=== PATIENT | female | born 1980 | race Caucasian/White ===

== ENCOUNTER 2016-04-17 14:04 | Inpatient (IN) | payer MEDICAID, OTHER ==
[~2016-04-17] VITALS: Ht 157.5 cm; Wt 106.0 kg
[~2016-04-17 14:04] MED LIST: BUSP10TA23 PO; FLUO-191 PO; GABA-531 PO; LEVE500T53 PO; LEVO50TA4 PO; VIST50 PO
[2016-04-17 14:31] LABS: GLUCOSE,POINT OF CARE 146 MG/DL (70-110)
[2016-04-17 14:54] LABS: BASOPHILS % (AUTO) 0.3 % (0.0-2.0); EOSINOPHILS % (AUTO) 1.6 % (1.0-6.0); HEMATOCRIT 41.7 % (36-46); HEMOGLOBIN 13.7 g/dL (12.0-16.0); LYMPHOCYTES # (AUTO) 2.3 K/uL (1.0-4.8); LYMPHOCYTES % (AUTO) 28.6 % (22.0-44.0); MEAN CORPUSCULAR HEMOGLOBIN 27.4 pg (26.0-34.0); MEAN CORPUSCULAR HGB CONC 32.9 G/dL (31.0-37.0); MEAN CORPUSCULAR VOLUME 83 fL (80-100); MONOCYTES # (AUTO) 0.6 K/uL (0.1-1.0); MONOCYTES % (AUTO) 8.2 % (2.0-9.0); NEUTROPHILS # (AUTO) 4.9 K/uL (1.8-7.7); NEUTROPHILS % (AUTO) 61.3 % (40.0-70.0); PLATELET COUNT (AUTO) 247 K/uL (150-450); RED CELL DISTRIBUTION WIDTH 14.5 % (11.5-14.5); WHITE BLOOD COUNT (AUTO) 7.9 K/uL (4.5-11.0)
[2016-04-17 15:08] LABS: ANION GAP 10 mmol/L (8-16); CALCIUM, TOTAL 9.6 mg/dL (8.8-10.5); CARBON DIOXIDE 26 mmol/L (22-29); CHLORIDE 102 mmol/L (98-107); CREATININE 0.52 mg/dL (0.60-1.30); GLOMERULAR FILTR. RATE CALC > 60 mL/min (>60); POTASSIUM 3.6 mmol/L (3.5-5.1); SODIUM SERUM 138 mmol/L (136-145); UREA NITROGEN, BLOOD 17 mg/dL (7-18)
[2016-04-17 15:14] LABS: ALANINE AMINOTRANSFERASE 73 U/L (12-78); ALBUMIN 3.2 g/dL (3.4-5.0); ASPARTATE AMINOTRANSFERASE 46 U/L (15-37); BILIRUBIN,TOTAL 0.3 mg/dL (0.1-1.0); TOTAL PROTEIN, SERUM 7.2 g/dL (6.4-8.2)
[2016-04-17 15:18] LABS: SALICYLATE < 2.8 mg/dL (2.8-20.0)
[2016-04-17 15:27] LABS: ACETAMINOPHEN < 2 mcg/mL (10-30)
[2016-04-17] MEDS ORDERED: HYDR-4031 PO (18:09)
[2016-04-17 19:22] LABS: SALICYLATE < 2.8 mg/dL (2.8-20.0)
[2016-04-17] MEDS ORDERED: PROMETHAZINE HCL 50 MG/ML VIAL IM ONE (19:45)
[2016-04-17 20:01] LABS: ACETAMINOPHEN < 2 mcg/mL (10-30)
[2016-04-17 20:53] VITALS: BP 131/68
[2016-04-17] MEDS ORDERED: DEXTROSE 50%-WATER 25 GM/50 ML SYRINGE IVP PRN (21:15)
[2016-04-17] MEDS: ZOLPIDEM TARTRATE 10 MG TABLET PO PRN (22:21)
[2016-04-18] MEDS: LEVOTHYROXINE SODIUM 50 MCG TABLET PO SCH (06:10)
[2016-04-18 09:56] VITALS: BP 138/92
[2016-04-18] MEDS: LevETIRAcetam 500 MG TABLET PO SCH ×2 (10:18→16:54)
[2016-04-18] MEDS: GABAPENTIN 300 MG CAPSULE PO SCH ×3 (14:37→21:00)
[2016-04-18] MEDS: LORazepam 2 MG TABLET PO PRN (15:20)
[2016-04-18 20:10] VITALS: BP 147/87
[2016-04-19 05:26] LABS: GLUCOSE,POINT OF CARE 190 MG/DL (70-110)
[2016-04-19] MEDS: LEVOTHYROXINE SODIUM 50 MCG TABLET PO SCH (06:35)
[2016-04-19] MEDS ORDERED: FLUoxetine HCL 20 MG CAPSULE PO SCH (09:00)
[2016-04-19] MEDS: BusPIRone HCL 10 MG TABLET PO SCH ×2 (09:35→16:04)
[2016-04-19] MEDS: GABAPENTIN 300 MG CAPSULE PO SCH ×4 (09:35→20:49)
[2016-04-19] MEDS: MULTIVITAMINS WITH MINERALS, THERAPEUTIC TABLET PO SCH (09:35)
[2016-04-19] MEDS: LevETIRAcetam 500 MG TABLET PO SCH ×2 (09:35→16:04)
[2016-04-19] MEDS: LORazepam 2 MG TABLET PO PRN ×2 (10:57→16:10)
[2016-04-19 11:35] LABS: GLUCOSE,POINT OF CARE 176 MG/DL (70-110)
[2016-04-19] MEDS: INSULIN ASPART 100 UNITS/ML SQ PRN ×3 (11:52→20:57)
[2016-04-19] MEDS: HydrOXYzine PAMOATE 25 MG CAPSULE PO SCH (16:04)
[2016-04-19 16:11] LABS: GLUCOSE,POINT OF CARE 144 MG/DL (70-110)
[2016-04-19 16:39] VITALS: BP 130/93
[2016-04-19] MEDS: QUEtiapine FUMARATE 100 MG TABLET PO PRN (19:11)
[2016-04-19 20:26] LABS: GLUCOSE,POINT OF CARE 215 MG/DL (70-110)
[2016-04-19] MEDS: ZOLPIDEM TARTRATE 10 MG TABLET PO PRN (21:04)
[2016-04-20] MEDS: LORazepam 2 MG TABLET PO PRN ×2 (03:39→17:44)
[2016-04-20 04:49] VITALS: BP 140/90
[2016-04-20 05:37] LABS: GLUCOSE,POINT OF CARE 151 MG/DL (70-110)
[2016-04-20] MEDS: LEVOTHYROXINE SODIUM 50 MCG TABLET PO SCH (06:07)
[2016-04-20] MEDS: FLUoxetine HCL 20 MG CAPSULE PO SCH (08:58)
[2016-04-20] MEDS: GABAPENTIN 300 MG CAPSULE PO SCH ×4 (08:58→21:20)
[2016-04-20] MEDS: LevETIRAcetam 500 MG TABLET PO SCH ×2 (08:58→16:53)
[2016-04-20] MEDS: MULTIVITAMINS WITH MINERALS, THERAPEUTIC TABLET PO SCH (08:59)
[2016-04-20] MEDS: HydrOXYzine PAMOATE 25 MG CAPSULE PO SCH ×3 (08:59→16:53)
[2016-04-20] MEDS: BusPIRone HCL 10 MG TABLET PO SCH ×2 (08:59→16:53)
[2016-04-20 11:42] LABS: GLUCOSE,POINT OF CARE 165 MG/DL (70-110)
[2016-04-20] MEDS: INSULIN ASPART 100 UNITS/ML SQ PRN (12:11)
[2016-04-20 17:01] VITALS: BP 118/67
[2016-04-21 05:31] LABS: GLUCOSE,POINT OF CARE 130 MG/DL (70-110)
[2016-04-21] MEDS: LEVOTHYROXINE SODIUM 50 MCG TABLET PO SCH (06:22)
[2016-04-21] MEDS: LevETIRAcetam 500 MG TABLET PO SCH ×2 (08:15→16:40)
[2016-04-21] MEDS: FLUoxetine HCL 20 MG CAPSULE PO SCH (08:15)
[2016-04-21] MEDS: BusPIRone HCL 10 MG TABLET PO SCH ×2 (08:15→16:40)
[2016-04-21] MEDS: MULTIVITAMINS WITH MINERALS, THERAPEUTIC TABLET PO SCH (08:16)
[2016-04-21] MEDS: GABAPENTIN 300 MG CAPSULE PO SCH ×4 (08:16→20:55)
[2016-04-21] MEDS: HydrOXYzine PAMOATE 25 MG CAPSULE PO SCH ×3 (08:16→16:41)
[2016-04-21] MEDS: LORazepam 2 MG TABLET PO PRN ×2 (08:28→12:47)
[2016-04-21 09:31] VITALS: BP 129/89
[2016-04-21 11:36] LABS: GLUCOSE,POINT OF CARE 207 MG/DL (70-110)
[2016-04-21] MEDS: INSULIN ASPART 100 UNITS/ML SQ PRN (11:52)
[2016-04-21 17:00] VITALS: BP 114/77
[2016-04-21] MEDS: ZOLPIDEM TARTRATE 10 MG TABLET PO PRN (20:56)
[2016-04-21] MEDS: QUEtiapine FUMARATE 100 MG TABLET PO PRN (22:38)
[2016-04-22 05:36] LABS: GLUCOSE,POINT OF CARE 161 MG/DL (70-110)
[2016-04-22] MEDS: LEVOTHYROXINE SODIUM 50 MCG TABLET PO SCH (06:18)
[2016-04-22] MEDS: LevETIRAcetam 500 MG TABLET PO SCH ×2 (09:56→16:52)
[2016-04-22] MEDS: BusPIRone HCL 10 MG TABLET PO SCH ×2 (09:56→16:52)
[2016-04-22] MEDS: GABAPENTIN 300 MG CAPSULE PO SCH ×4 (09:56→22:17)
[2016-04-22] MEDS: FLUoxetine HCL 20 MG CAPSULE PO SCH (09:56)
[2016-04-22] MEDS: HydrOXYzine PAMOATE 25 MG CAPSULE PO SCH ×3 (09:56→16:52)
[2016-04-22] MEDS: MULTIVITAMINS WITH MINERALS, THERAPEUTIC TABLET PO SCH (09:56)
[2016-04-22] MEDS: LORazepam 2 MG TABLET PO PRN ×2 (10:51→16:52)
[2016-04-22 11:41] LABS: GLUCOSE,POINT OF CARE 262 MG/DL (70-110)
[2016-04-22] MEDS: INSULIN ASPART 100 UNITS/ML SQ PRN (12:20)
[2016-04-22 19:46] VITALS: BP 125/78
[2016-04-23] MEDS: ZOLPIDEM TARTRATE 10 MG TABLET PO PRN ×2 (02:31→22:13)
[2016-04-23] MEDS: LORazepam 2 MG TABLET PO PRN ×3 (05:14→17:21)
[2016-04-23 05:44] VITALS: BP 117/77
[2016-04-23 06:06] LABS: GLUCOSE,POINT OF CARE 146 MG/DL (70-110)
[2016-04-23] MEDS: LEVOTHYROXINE SODIUM 50 MCG TABLET PO SCH (06:44)
[2016-04-23 09:03] VITALS: BP 142/74
[2016-04-23] MEDS: MULTIVITAMINS WITH MINERALS, THERAPEUTIC TABLET PO SCH (10:32)
[2016-04-23] MEDS: FLUoxetine HCL 20 MG CAPSULE PO SCH (10:33)
[2016-04-23] MEDS: GABAPENTIN 300 MG CAPSULE PO SCH ×4 (10:33→21:14)
[2016-04-23] MEDS: BusPIRone HCL 10 MG TABLET PO SCH ×2 (10:33→17:22)
[2016-04-23] MEDS: HydrOXYzine PAMOATE 25 MG CAPSULE PO SCH ×3 (10:33→17:21)
[2016-04-23] MEDS: LevETIRAcetam 500 MG TABLET PO SCH ×2 (10:33→17:20)
[2016-04-23 11:50] LABS: GLUCOSE,POINT OF CARE 174 MG/DL (70-110)
[2016-04-23] MEDS: INSULIN ASPART 100 UNITS/ML SQ PRN ×3 (12:50→21:26)
[2016-04-23 16:30] VITALS: BP 116/67
[2016-04-23 17:26] LABS: GLUCOSE,POINT OF CARE 211 MG/DL (70-110)
[2016-04-23] MEDS: OLANZapine 10 MG TABLET PO SCH (21:13)
[2016-04-23 21:16] LABS: GLUCOSE,POINT OF CARE 262 MG/DL (70-110)
[2016-04-24 06:26] LABS: GLUCOSE,POINT OF CARE 158 MG/DL (70-110)
[2016-04-24] MEDS: LEVOTHYROXINE SODIUM 50 MCG TABLET PO SCH (06:36)
[2016-04-24] MEDS: INSULIN ASPART 100 UNITS/ML SQ PRN ×3 (06:37→18:02)
[2016-04-24 08:57] VITALS: BP 129/66
[2016-04-24] MEDS: LORazepam 2 MG TABLET PO PRN ×3 (10:11→20:48)
[2016-04-24] MEDS: LevETIRAcetam 500 MG TABLET PO SCH ×2 (10:11→16:23)
[2016-04-24] MEDS: FLUoxetine HCL 20 MG CAPSULE PO SCH (10:11)
[2016-04-24] MEDS: HydrOXYzine PAMOATE 25 MG CAPSULE PO SCH ×3 (10:11→16:24)
[2016-04-24] MEDS: GABAPENTIN 300 MG CAPSULE PO SCH ×4 (10:11→20:46)
[2016-04-24] MEDS: MULTIVITAMINS WITH MINERALS, THERAPEUTIC TABLET PO SCH (10:11)
[2016-04-24] MEDS: BusPIRone HCL 10 MG TABLET PO SCH ×2 (10:13→16:24)
[2016-04-24 12:12] LABS: GLUCOSE,POINT OF CARE 258 MG/DL (70-110)
[2016-04-24 16:26] LABS: GLUCOSE,POINT OF CARE 207 MG/DL (70-110)
[2016-04-24 20:07] VITALS: BP 135/70
[2016-04-24] MEDS: OLANZapine 10 MG TABLET PO SCH (20:46)
[2016-04-24 20:51] LABS: GLUCOSE,POINT OF CARE 322 MG/DL (70-110)
[2016-04-25] MEDS: LEVOTHYROXINE SODIUM 50 MCG TABLET PO SCH (06:53)
[2016-04-25] MEDS: LORazepam 2 MG TABLET PO PRN ×3 (08:07→18:55)
[2016-04-25] MEDS: LevETIRAcetam 500 MG TABLET PO SCH ×2 (08:08→16:07)
[2016-04-25] MEDS: BusPIRone HCL 10 MG TABLET PO SCH ×2 (08:09→16:08)
[2016-04-25] MEDS: FLUoxetine HCL 20 MG CAPSULE PO SCH (08:09)
[2016-04-25] MEDS: MULTIVITAMINS WITH MINERALS, THERAPEUTIC TABLET PO SCH (08:09)
[2016-04-25] MEDS: GABAPENTIN 300 MG CAPSULE PO SCH ×4 (08:09→21:19)
[2016-04-25] MEDS: QUEtiapine FUMARATE 100 MG TABLET PO PRN ×3 (08:10→19:10)
[2016-04-25] MEDS: HydrOXYzine PAMOATE 25 MG CAPSULE PO SCH ×3 (08:10→16:08)
[2016-04-25 11:56] LABS: GLUCOSE,POINT OF CARE 207 MG/DL (70-110)
[2016-04-25] MEDS: INSULIN ASPART 100 UNITS/ML SQ PRN ×3 (12:26→21:25)
[2016-04-25 13:13] VITALS: BP 132/78
[2016-04-25 16:16] LABS: GLUCOSE COMMENT 1 Received Meds; GLUCOSE,POINT OF CARE 209 MG/DL (70-110)
[2016-04-25] MEDS: OLANZapine 10 MG TABLET PO SCH (21:19)
[2016-04-25 21:31] LABS: GLUCOSE COMMENT 1 Received Meds; GLUCOSE,POINT OF CARE 207 MG/DL (70-110)
[2016-04-26] MEDS: LEVOTHYROXINE SODIUM 50 MCG TABLET PO SCH (06:51)
[2016-04-26] MEDS: MULTIVITAMINS WITH MINERALS, THERAPEUTIC TABLET PO SCH (09:24)
[2016-04-26] MEDS: LORazepam 2 MG TABLET PO PRN (09:24)
[2016-04-26] MEDS: FLUoxetine HCL 20 MG CAPSULE PO SCH (09:24)
[2016-04-26] MEDS: GABAPENTIN 300 MG CAPSULE PO SCH ×2 (09:24→13:51)
[2016-04-26] MEDS: LevETIRAcetam 500 MG TABLET PO SCH (09:25)
[2016-04-26] MEDS: BusPIRone HCL 10 MG TABLET PO SCH (09:25)
[2016-04-26] MEDS: QUEtiapine FUMARATE 100 MG TABLET PO PRN (09:26)
[2016-04-26] MEDS: HydrOXYzine PAMOATE 25 MG CAPSULE PO SCH ×2 (09:33→13:51)
[2016-04-26 11:30] LABS: GLUCOSE,POINT OF CARE 186 MG/DL (70-110)
[2016-04-26] MEDS: INSULIN ASPART 100 UNITS/ML SQ PRN (11:46)
[2016-04-26] MEDS ORDERED: OLAN10TA3 PO (12:26)
== END 2016-04-26 14:00 | disposition home or self-care (01) | DRG 753 ==
LOC: EMS 14:06 → 3EI 19:02
DX: F31.4 Bipolar disorder, current episode depressed, severe, without psychotic features (principal); E11.9 Type 2 diabetes mellitus without complications; E03.9 Hypothyroidism, unspecified; T43.592A Poisoning by other antipsychotics and neuroleptics, intentional self-harm, initial encounter; T43.222A Poisoning by selective serotonin reuptake inhibitors, intentional self-harm, initial encounter; F20.9 Schizophrenia, unspecified; G40.909 Epilepsy, unspecified, not intractable, without status epilepticus; Y92.89 Other specified places as the place of occurrence of the external cause; X83.8XXA Intentional self-harm by other specified means, initial encounter; Y93.89 Activity, other specified; Y99.8 Other external cause status; Z88.8 Allergy status to other drugs, medicaments and biological substances; Z88.0 Allergy status to penicillin; Z79.899 Other long term (current) drug therapy; Z90.49 Acquired absence of other specified parts of digestive tract; Z98.890 Other specified postprocedural states; Z72.89 Other problems related to lifestyle
CPT/HCPCS: 82962; 99285; G0480; G0481; J2550

== ENCOUNTER 2016-07-18 19:02 | Inpatient (IN) | payer MEDICAID ==
[~2016-07-18] VITALS: Ht 157.5 cm; Wt 103.6 kg
[~2016-07-18 19:02] MED LIST changes: +HYDR-4031 PO; +OLAN10TA3 PO; -VIST50 PO
[2016-07-18 21:12] VITALS: BP 128/84
[2016-07-18] MEDS: LORazepam 2 MG TABLET PO PRN (22:43)
[2016-07-18] MEDS: OLANZapine 5 MG RAPDIS TABLET PO PRN (22:43)
[2016-07-18] MEDS ORDERED: PERMETHRIN 1% 60 ML LOTION TP ONE (23:30)
[2016-07-19] MEDS: ZOLPIDEM TARTRATE 10 MG TABLET PO PRN ×2 (00:08→22:28)
[2016-07-19] MEDS ORDERED: GLUCAGON,HUMAN RECOMBINANT 1 MG VIAL IM PRN (06:30)
[2016-07-19] MEDS: LEVOTHYROXINE SODIUM 50 MCG TABLET PO SCH (07:03)
[2016-07-19 07:38] LABS: GLUCOSE,POINT OF CARE 177 MG/DL (70-110)
[2016-07-19 07:38] LABS: GLUCOSE COMMENT 1 Received Meds; GLUCOSE,POINT OF CARE 184 MG/DL (70-110)
[2016-07-19] MEDS ORDERED: LOPERAMIDE HCL 2 MG CAPSULE PO PRN (08:30)
[2016-07-19] MEDS ORDERED: ALBUTEROL SULFATE HFA 90 MCG/PUFF 8 GM INHALER IH PRN (08:30)
[2016-07-19] MEDS ORDERED: IBUPROFEN 600 MG TABLET PO PRN (08:30)
[2016-07-19] MEDS ORDERED: ACETAMINOPHEN 325 MG TABLET PO PRN (08:30)
[2016-07-19] MEDS ORDERED: MAG HYDROX/AL HYDROX/SIMETH ES 30 ML SUSPENSION UDCUP PO PRN (08:30)
[2016-07-19] MEDS ORDERED: MAGNESIUM HYDROXIDE SUSPENSION 30 ML UDCUP PO PRN (08:30)
[2016-07-19] MEDS ORDERED: CloNIDine HCL 0.1 MG TABLET PO PRN (08:30)
[2016-07-19] MEDS ORDERED: PETROLATUM,WHITE 71 GM JELLY TP PRN (08:30)
[2016-07-19] MEDS ORDERED: BACITRACIN 28.4 GM OINTMENT TP PRN (08:30)
[2016-07-19] MEDS ORDERED: ONDANSETRON HCL 4 MG TABLET PO PRN (08:30)
[2016-07-19] MEDS ORDERED: BENZOCAINE/MENTHOL LOZENGE MM PRN (08:30)
[2016-07-19] MEDS: LevETIRAcetam 500 MG TABLET PO SCH ×2 (09:42→16:58)
[2016-07-19] MEDS: NICOTINE 21 MG/24 HOUR PATCH TD SCH (09:42)
[2016-07-19] MEDS: HydrOXYzine PAMOATE 25 MG CAPSULE PO SCH ×3 (10:39→16:58)
[2016-07-19] MEDS: FLUoxetine HCL 20 MG CAPSULE PO SCH (10:39)
[2016-07-19] MEDS: BusPIRone HCL 10 MG TABLET PO SCH ×2 (10:39→16:58)
[2016-07-19 16:26] VITALS: BP 111/79
[2016-07-19] MEDS: LORazepam 2 MG TABLET PO PRN (16:58)
[2016-07-19 19:39] LABS: GLUCOSE,POINT OF CARE 152 MG/DL (70-110)
[2016-07-19 19:39] LABS: GLUCOSE,POINT OF CARE 110 MG/DL (70-110)
[2016-07-19] MEDS: GABAPENTIN 300 MG CAPSULE PO SCH (21:21)
[2016-07-19] MEDS: OLANZapine 10 MG TABLET PO SCH (21:21)
[2016-07-20] MEDS: LORazepam 2 MG TABLET PO PRN ×3 (06:17→16:47)
[2016-07-20] MEDS: LEVOTHYROXINE SODIUM 50 MCG TABLET PO SCH (06:17)
[2016-07-20 07:04] LABS: GLUCOSE,POINT OF CARE 131 MG/DL (70-110)
[2016-07-20] MEDS: LevETIRAcetam 500 MG TABLET PO SCH ×2 (09:43→16:21)
[2016-07-20] MEDS: FLUoxetine HCL 20 MG CAPSULE PO SCH (09:43)
[2016-07-20] MEDS: BusPIRone HCL 10 MG TABLET PO SCH ×2 (09:43→16:21)
[2016-07-20] MEDS: HydrOXYzine PAMOATE 25 MG CAPSULE PO SCH ×3 (09:43→16:21)
[2016-07-20] MEDS: NICOTINE 21 MG/24 HOUR PATCH TD SCH (09:44)
[2016-07-20] MEDS: INSULIN ASPART 100 UNITS/ML SQ PRN ×2 (11:36→17:04)
[2016-07-20 13:53] LABS: GLUCOSE,POINT OF CARE 166 MG/DL (70-110)
[2016-07-20 16:35] VITALS: BP 113/64
[2016-07-20 16:52] LABS: GLUCOSE,POINT OF CARE 257 MG/DL (70-110)
[2016-07-20] MEDS: OLANZapine 5 MG RAPDIS TABLET PO PRN (17:34)
[2016-07-20] MEDS: GABAPENTIN 300 MG CAPSULE PO SCH (20:17)
[2016-07-20] MEDS: OLANZapine 10 MG TABLET PO SCH (20:18)
[2016-07-20 20:37] LABS: GLUCOSE,POINT OF CARE 218 MG/DL (70-110)
[2016-07-20] MEDS: ZOLPIDEM TARTRATE 10 MG TABLET PO PRN (20:49)
[2016-07-21] MEDS: LORazepam 2 MG TABLET PO PRN ×3 (06:20→16:12)
[2016-07-21] MEDS: INSULIN ASPART 100 UNITS/ML SQ PRN (06:20)
[2016-07-21] MEDS: LEVOTHYROXINE SODIUM 50 MCG TABLET PO SCH (06:20)
[2016-07-21 06:22] LABS: GLUCOSE,POINT OF CARE 158 MG/DL (70-110)
[2016-07-21 06:35] VITALS: BP 105/60
[2016-07-21] MEDS ORDERED: PERMETHRIN 1% 60 ML LOTION TP ONE (06:45)
[2016-07-21] MEDS: NICOTINE 21 MG/24 HOUR PATCH TD SCH (09:37)
[2016-07-21] MEDS: BusPIRone HCL 10 MG TABLET PO SCH ×2 (09:38→16:12)
[2016-07-21] MEDS: HydrOXYzine PAMOATE 25 MG CAPSULE PO SCH ×3 (09:38→16:12)
[2016-07-21] MEDS: FLUoxetine HCL 20 MG CAPSULE PO SCH (09:38)
[2016-07-21] MEDS: OLANZapine 5 MG RAPDIS TABLET PO PRN (09:38)
[2016-07-21] MEDS: LevETIRAcetam 500 MG TABLET PO SCH ×2 (09:38→16:12)
[2016-07-21 11:21] LABS: GLUCOSE,POINT OF CARE 183 MG/DL (70-110)
[2016-07-21 16:46] LABS: GLUCOSE,POINT OF CARE 266 MG/DL (70-110)
[2016-07-21] MEDS: OLANZapine 10 MG TABLET PO SCH (21:24)
[2016-07-21] MEDS: GABAPENTIN 300 MG CAPSULE PO SCH (21:24)
[2016-07-21] MEDS: ZOLPIDEM TARTRATE 10 MG TABLET PO PRN (21:24)
[2016-07-21 21:32] LABS: GLUCOSE,POINT OF CARE 226 MG/DL (70-110)
[2016-07-22] MEDS: LORazepam 2 MG TABLET PO PRN (03:14)
[2016-07-22] MEDS: LEVOTHYROXINE SODIUM 50 MCG TABLET PO SCH (06:54)
[2016-07-22] MEDS ORDERED: INSULIN NPH,HUMAN ISOPHANE 100 UNITS/ML SQ SCH ×2 (07:00→21:00)
[2016-07-22] MEDS ORDERED: SUMAtriptan SUCCINATE 25 MG TABLET PO PRN (07:00)
[2016-07-22 08:21] VITALS: BP 104/60
[2016-07-22] MEDS: LevETIRAcetam 500 MG TABLET PO SCH (08:58)
[2016-07-22] MEDS: FLUoxetine HCL 20 MG CAPSULE PO SCH (08:58)
[2016-07-22] MEDS: BusPIRone HCL 10 MG TABLET PO SCH (08:58)
[2016-07-22] MEDS: HydrOXYzine PAMOATE 25 MG CAPSULE PO SCH ×2 (08:58→12:53)
[2016-07-22] MEDS: NICOTINE 21 MG/24 HOUR PATCH TD SCH (08:58)
[2016-07-22] MEDS: INSULIN ASPART 100 UNITS/ML SQ PRN (11:41)
[2016-07-22 12:33] LABS: GLUCOSE,POINT OF CARE 249 MG/DL (70-110)
[2016-07-26] MEDS ORDERED: PERMETHRIN 1% 60 ML LOTION TP ONE (08:00)
== END 2016-07-22 15:17 | disposition home or self-care (01) | DRG 753 ==
LOC: B2S 22:05 → EDSTATUS 22:09 → B3A 23:08
PROVIDERS: ADMIT Psychiatry & Neurology Psychiatry; ATTEND Psychiatry & Neurology Psychiatry
DX: F31.9 Bipolar disorder, unspecified (principal); E11.65 Type 2 diabetes mellitus with hyperglycemia; I10 Essential (primary) hypertension; Z68.41 Body mass index [BMI] 40.0-44.9, adult; F15.90 Other stimulant use, unspecified, uncomplicated; B85.0 Pediculosis due to Pediculus humanus capitis; E66.01 Morbid (severe) obesity due to excess calories; G40.909 Epilepsy, unspecified, not intractable, without status epilepticus; J45.909 Unspecified asthma, uncomplicated; E03.9 Hypothyroidism, unspecified; G47.00 Insomnia, unspecified; Z53.29 Procedure and treatment not carried out because of patient's decision for other reasons; F22 Delusional disorders; Z88.8 Allergy status to other drugs, medicaments and biological substances; Z88.0 Allergy status to penicillin; Z90.49 Acquired absence of other specified parts of digestive tract; Z79.899 Other long term (current) drug therapy
CPT/HCPCS: 82962; 87081; J1815

== ENCOUNTER 2016-08-01 13:54 | Inpatient (IN) | payer MEDICAID ==
[~2016-08-01] VITALS: Ht 157.5 cm; Wt 105.9 kg
[2016-08-01] MEDS ORDERED: PNEUMOCOCCAL VACCINE POLYVALENT 0.5 ML VIAL [PPSV23] IM ONE (21:30)
[2016-08-01] MEDS: LORazepam 2 MG TABLET PO PRN (21:39)
[2016-08-01 21:48] VITALS: BP 125/92
[2016-08-01 22:17] LABS: GLUCOSE,POINT OF CARE 219 MG/DL (70-110)
[2016-08-02] MEDS: LORazepam 2 MG TABLET PO PRN ×3 (06:58→16:13)
[2016-08-02] MEDS ORDERED: IBUPROFEN 600 MG TABLET PO PRN (08:15)
[2016-08-02] MEDS ORDERED: BENZOCAINE/MENTHOL LOZENGE MM PRN (08:15)
[2016-08-02] MEDS ORDERED: CloNIDine HCL 0.1 MG TABLET PO PRN (08:15)
[2016-08-02] MEDS ORDERED: MAGNESIUM HYDROXIDE SUSPENSION 30 ML UDCUP PO PRN (08:15)
[2016-08-02] MEDS ORDERED: ONDANSETRON HCL 4 MG TABLET PO PRN (08:15)
[2016-08-02] MEDS ORDERED: GLUCAGON,HUMAN RECOMBINANT 1 MG VIAL IM PRN (08:15)
[2016-08-02] MEDS ORDERED: ALBUTEROL SULFATE HFA 90 MCG/PUFF 8 GM INHALER IH PRN (08:15)
[2016-08-02] MEDS ORDERED: ACETAMINOPHEN 325 MG TABLET PO PRN (08:15)
[2016-08-02] MEDS ORDERED: PETROLATUM,WHITE 71 GM JELLY TP PRN (08:15)
[2016-08-02] MEDS ORDERED: MAG HYDROX/AL HYDROX/SIMETH ES 30 ML SUSPENSION UDCUP PO PRN (08:15)
[2016-08-02] MEDS ORDERED: LOPERAMIDE HCL 2 MG CAPSULE PO PRN (08:15)
[2016-08-02] MEDS ORDERED: BACITRACIN 28.4 GM OINTMENT TP PRN (08:15)
[2016-08-02 08:29] VITALS: BP 118/73
[2016-08-02] MEDS: BusPIRone HCL 10 MG TABLET PO SCH ×2 (09:10→16:12)
[2016-08-02] MEDS: LevETIRAcetam 500 MG TABLET PO SCH ×2 (09:10→16:12)
[2016-08-02] MEDS: HydrOXYzine PAMOATE 25 MG CAPSULE PO SCH ×3 (09:10→16:13)
[2016-08-02] MEDS: FLUoxetine HCL 20 MG CAPSULE PO SCH (09:10)
[2016-08-02] MEDS: INSULIN ASPART 100 UNITS/ML SQ PRN ×3 (11:52→22:04)
[2016-08-02 12:22] LABS: GLUCOSE,POINT OF CARE 189 MG/DL (70-110)
[2016-08-02] MEDS ORDERED: PERMETHRIN 1% 60 ML LOTION TP ONE (12:45)
[2016-08-02] MEDS: FISH OIL/OMEGA-3 FATTY ACIDS 500 MG CAPSULE PO SCH (13:33)
[2016-08-02 16:32] LABS: GLUCOSE,POINT OF CARE 258 MG/DL (70-110)
[2016-08-02] MEDS: INSULIN DETEMIR 100 UNITS/ML SQ SCH (21:59)
[2016-08-02] MEDS: GABAPENTIN 300 MG CAPSULE PO SCH (21:59)
[2016-08-02] MEDS: OLANZapine 10 MG TABLET PO SCH (21:59)
[2016-08-02] MEDS: ZOLPIDEM TARTRATE 10 MG TABLET PO PRN (22:05)
[2016-08-02 22:12] LABS: GLUCOSE,POINT OF CARE 209 MG/DL (70-110)
[2016-08-03] MEDS: LEVOTHYROXINE SODIUM 50 MCG TABLET PO SCH (06:52)
[2016-08-03 07:02] VITALS: BP 128/85
[2016-08-03 07:02] LABS: GLUCOSE,POINT OF CARE 148 MG/DL (70-110)
[2016-08-03] MEDS: INSULIN ASPART 100 UNITS/ML SQ PRN ×4 (07:04→20:39)
[2016-08-03] MEDS: LORazepam 2 MG TABLET PO PRN ×4 (07:05→22:06)
[2016-08-03] MEDS: HydrOXYzine PAMOATE 25 MG CAPSULE PO SCH ×3 (09:43→16:48)
[2016-08-03] MEDS: FLUoxetine HCL 20 MG CAPSULE PO SCH (09:43)
[2016-08-03] MEDS: LevETIRAcetam 500 MG TABLET PO SCH ×2 (09:43→16:48)
[2016-08-03] MEDS: BusPIRone HCL 10 MG TABLET PO SCH ×2 (09:43→16:48)
[2016-08-03] MEDS: FISH OIL/OMEGA-3 FATTY ACIDS 500 MG CAPSULE PO SCH (09:44)
[2016-08-03 11:27] LABS: GLUCOSE COMMENT 1 Received Meds; GLUCOSE,POINT OF CARE 209 MG/DL (70-110)
[2016-08-03] MEDS ORDERED: IVERMECTIN 3 MG TABLET PO ONE (15:30)
[2016-08-03 16:52] LABS: GLUCOSE,POINT OF CARE 255 MG/DL (70-110)
[2016-08-03] MEDS: GABAPENTIN 300 MG CAPSULE PO SCH (20:03)
[2016-08-03 20:17] LABS: GLUCOSE,POINT OF CARE 299 MG/DL (70-110)
[2016-08-03] MEDS: INSULIN DETEMIR 100 UNITS/ML SQ SCH (20:38)
[2016-08-03] MEDS: ZOLPIDEM TARTRATE 10 MG TABLET PO PRN (20:59)
[2016-08-03] MEDS: OLANZapine 10 MG TABLET PO SCH (21:23)
[2016-08-04 06:41] LABS: GLUCOSE,POINT OF CARE 156 MG/DL (70-110)
[2016-08-04] MEDS: LEVOTHYROXINE SODIUM 50 MCG TABLET PO SCH (06:57)
[2016-08-04] MEDS: INSULIN ASPART 100 UNITS/ML SQ PRN (07:03)
[2016-08-04] MEDS: BusPIRone HCL 10 MG TABLET PO SCH (08:06)
[2016-08-04] MEDS: LevETIRAcetam 500 MG TABLET PO SCH (08:06)
[2016-08-04] MEDS: HydrOXYzine PAMOATE 25 MG CAPSULE PO SCH (08:06)
[2016-08-04] MEDS: FISH OIL/OMEGA-3 FATTY ACIDS 500 MG CAPSULE PO SCH (08:06)
[2016-08-04] MEDS: LORazepam 2 MG TABLET PO PRN (08:06)
[2016-08-04] MEDS: FLUoxetine HCL 20 MG CAPSULE PO SCH (08:06)
[2016-08-04 09:01] LABS: BASOPHILS # (AUTO) 0.04 K/uL (0.00-0.20); BASOPHILS % (AUTO) 0.5 % (0.0-2.0); EOSINOPHILS # (AUTO) 0.17 K/uL (0.00-0.70); EOSINOPHILS % (AUTO) 1.95 % (1.0-6.0); HEMATOCRIT 40.7 % (36-46); HEMOGLOBIN 13.4 g/dL (12.0-16.0); LYMPHOCYTES % (AUTO) 33.9 % (22.0-44.0); MEAN CORPUSCULAR HEMOGLOBIN 27.7 pg (26.0-34.0); MEAN CORPUSCULAR VOLUME 84 fL (80-100); MONOCYTES # (AUTO) 0.7 K/uL (0.1-1.0); MONOCYTES % (AUTO) 8.3 % (2.0-9.0); NEUTROPHILS # (AUTO) 4.8 K/uL (1.8-7.7); NEUTROPHILS % (AUTO) 55.4 % (40.0-70.0); PLATELET COUNT (AUTO) 233 K/uL (150-450); RED BLOOD CELL COUNT(AUTO) 4.84 MIL/uL (4.00-5.20); RED CELL DISTRIBUTION WIDTH 13.1 % (11.5-14.5); WHITE BLOOD COUNT (AUTO) 8.7 K/uL (4.5-11.0)
[2016-08-04 09:38] LABS: ALANINE AMINOTRANSFERASE 32 U/L (12-78); ANION GAP 10 mmol/L (8-16); ASPARTATE AMINOTRANSFERASE 15 U/L (15-37); BILIRUBIN,TOTAL 0.3 mg/dL (0.1-1.0); CALCIUM, TOTAL 8.9 mg/dL (8.8-10.5); CARBON DIOXIDE 25 mmol/L (22-29); CHLORIDE 105 mmol/L (98-107); CHOL/HDL RATIO 3.9 (3.9-5.7); CREATININE 0.64 mg/dL (0.60-1.30); GLOMERULAR FILTR. RATE CALC > 60 mL/min (>60); POTASSIUM 3.8 mmol/L (3.5-5.1); SODIUM SERUM 140 mmol/L (136-145); THYROID STIMULATING HORMONE 2.56 uIU/mL (0.36-3.74); UREA NITROGEN, BLOOD 15 mg/dL (7-18)
[2016-08-04 10:08] LABS: HEMOGLOBIN A1C 8.2 % (4.5-6.2)
== END 2016-08-04 10:15 | disposition home or self-care (01) | DRG 750 ==
LOC: B3A 20:53
PROVIDERS: ADMIT Psychiatry & Neurology Psychiatry; ATTEND Psychiatry & Neurology Psychiatry
DX: F25.9 Schizoaffective disorder, unspecified (principal); E11.40 Type 2 diabetes mellitus with diabetic neuropathy, unspecified; E11.65 Type 2 diabetes mellitus with hyperglycemia; F15.10 Other stimulant abuse, uncomplicated; B85.2 Pediculosis, unspecified; I10 Essential (primary) hypertension; E66.01 Morbid (severe) obesity due to excess calories; E03.9 Hypothyroidism, unspecified; G40.909 Epilepsy, unspecified, not intractable, without status epilepticus; G47.00 Insomnia, unspecified; J45.909 Unspecified asthma, uncomplicated; Z59.0 Homelessness; Z90.49 Acquired absence of other specified parts of digestive tract; Z88.8 Allergy status to other drugs, medicaments and biological substances; Z88.0 Allergy status to penicillin; Z79.899 Other long term (current) drug therapy; Z68.41 Body mass index [BMI] 40.0-44.9, adult; Z72.89 Other problems related to lifestyle
CPT/HCPCS: 82962; 83036; 84439; 84443; 87081; 90471

== ENCOUNTER 2016-10-11 13:52 | Inpatient (IN) | payer MEDICAID ==
[~2016-10-11] VITALS: Ht 157.5 cm; Wt 99.6 kg
[2016-10-11] MEDS ORDERED: TOPI100 PO (18:45)
[2016-10-11] MEDS: LORazepam 2 MG TABLET PO PRN (18:53)
[2016-10-11 19:00] VITALS: BP 118/72
[2016-10-11] MEDS ORDERED: PNEUMOCOCCAL VACCINE POLYVALENT 0.5 ML VIAL [PPSV23] IM ONE (19:15)
[2016-10-11 19:51] LABS: GLUCOSE,POINT OF CARE 202 MG/DL (70-110)
[2016-10-11] MEDS ORDERED: GLUCAGON,HUMAN RECOMBINANT 1 MG VIAL IM PRN (20:30)
[2016-10-11 20:37] LABS: GLUCOSE,POINT OF CARE 205 MG/DL (70-110)
[2016-10-11] MEDS: INSULIN ASPART 100 UNITS/ML SQ PRN (20:40)
[2016-10-11] MEDS: ZOLPIDEM TARTRATE 10 MG TABLET PO PRN (21:41)
[2016-10-12 04:17] VITALS: BP 127/86
[2016-10-12] MEDS: LORazepam 2 MG TABLET PO PRN ×4 (04:19→20:41)
[2016-10-12 06:07] LABS: GLUCOSE,POINT OF CARE 197 MG/DL (70-110)
[2016-10-12] MEDS: INSULIN ASPART 100 UNITS/ML SQ PRN ×4 (06:16→20:43)
[2016-10-12] MEDS: LEVOTHYROXINE SODIUM 50 MCG TABLET PO SCH (06:36)
[2016-10-12] MEDS: LevETIRAcetam 500 MG TABLET PO SCH ×2 (08:34→17:13)
[2016-10-12 08:36] LABS: BASOPHILS # (AUTO) 0.03 K/uL (0.00-0.20); BASOPHILS % (AUTO) 0.3 % (0.0-2.0); EOSINOPHILS # (AUTO) 0.26 K/uL (0.00-0.70); EOSINOPHILS % (AUTO) 2.66 % (1.0-6.0); HEMATOCRIT 43.6 % (36-46); HEMOGLOBIN 14.2 g/dL (12.0-16.0); LYMPHOCYTES # (AUTO) 3.1 K/uL (1.0-4.8); LYMPHOCYTES % (AUTO) 31.5 % (22.0-44.0); MEAN CORPUSCULAR HGB CONC 32.6 G/dL (31.0-37.0); MEAN CORPUSCULAR VOLUME 86 fL (80-100); MONOCYTES # (AUTO) 0.8 K/uL (0.1-1.0); MONOCYTES % (AUTO) 8.4 % (2.0-9.0); NEUTROPHILS # (AUTO) 5.7 K/uL (1.8-7.7); NEUTROPHILS % (AUTO) 57.1 % (40.0-70.0); PLATELET COUNT (AUTO) 109 K/uL (150-450); RED BLOOD CELL COUNT(AUTO) 5.07 MIL/uL (4.00-5.20); RED CELL DISTRIBUTION WIDTH 14.1 % (11.5-14.5); WHITE BLOOD COUNT (AUTO) 11.1 K/uL (4.5-11.0)
[2016-10-12] MEDS: NICOTINE 14 MG/24 HOUR PATCH TD SCH (08:36)
[2016-10-12] MEDS: BACITRACIN 28.4 GM OINTMENT TP SCH ×2 (08:39→17:13)
[2016-10-12 08:51] LABS: HEMOGLOBIN A1C 8.4 % (4.5-6.2)
[2016-10-12] MEDS ORDERED: FLUoxetine HCL 20 MG CAPSULE PO SCH (09:00)
[2016-10-12] MEDS ORDERED: PERMETHRIN 1% 60 ML LOTION TP ONE (09:00)
[2016-10-12 09:13] LABS: ALANINE AMINOTRANSFERASE 49 U/L (12-78); ALBUMIN 3.2 g/dL (3.4-5.0); ANION GAP 8 mmol/L (8-16); ASPARTATE AMINOTRANSFERASE 21 U/L (15-37); BILIRUBIN,TOTAL 0.3 mg/dL (0.1-1.0); CALCIUM, TOTAL 9.5 mg/dL (8.8-10.5); CARBON DIOXIDE 27 mmol/L (22-29); CHLORIDE 103 mmol/L (98-107); CREATININE 0.64 mg/dL (0.60-1.30); GLOMERULAR FILTR. RATE CALC > 60 mL/min (>60); POTASSIUM 3.8 mmol/L (3.5-5.1); SODIUM SERUM 138 mmol/L (136-145); TOTAL PROTEIN, SERUM 6.7 g/dL (6.4-8.2); UREA NITROGEN, BLOOD 16 mg/dL (7-18)
[2016-10-12 09:14] LABS: CHOL/HDL RATIO 3.4 (3.9-5.7); THYROID STIMULATING HORMONE 2.44 uIU/mL (0.36-3.74)
[2016-10-12] MEDS ORDERED: PETROLATUM,WHITE 71 GM JELLY TP PRN (09:15)
[2016-10-12] MEDS ORDERED: MAGNESIUM HYDROXIDE SUSPENSION 30 ML UDCUP PO PRN (09:15)
[2016-10-12] MEDS ORDERED: BENZOCAINE/MENTHOL LOZENGE MM PRN (09:15)
[2016-10-12] MEDS ORDERED: MAG HYDROX/AL HYDROX/SIMETH ES 30 ML SUSPENSION UDCUP PO PRN (09:15)
[2016-10-12] MEDS ORDERED: LOPERAMIDE HCL 2 MG CAPSULE PO PRN (09:15)
[2016-10-12] MEDS ORDERED: ALBUTEROL SULFATE HFA 90 MCG/PUFF 8 GM INHALER IH PRN (09:15)
[2016-10-12] MEDS ORDERED: GABAPENTIN 400 MG CAPSULE PO SCH (09:15)
[2016-10-12] MEDS ORDERED: CloNIDine HCL 0.1 MG TABLET PO PRN (09:15)
[2016-10-12] MEDS ORDERED: BACITRACIN 28.4 GM OINTMENT TP PRN (09:15)
[2016-10-12] MEDS ORDERED: ONDANSETRON HCL 4 MG TABLET PO PRN (09:15)
[2016-10-12 12:12] LABS: GLUCOSE,POINT OF CARE 151 MG/DL (70-110)
[2016-10-12] MEDS: GABAPENTIN 300 MG CAPSULE PO SCH ×2 (12:33→17:13)
[2016-10-12 13:00] VITALS: BP 127/70
[2016-10-12 17:07] LABS: GLUCOSE COMMENT 1 Received Meds; GLUCOSE,POINT OF CARE 143 MG/DL (70-110)
[2016-10-12 17:32] VITALS: BP 116/74
[2016-10-12] MEDS: OLANZapine 10 MG TABLET PO SCH (20:21)
[2016-10-12 20:52] LABS: GLUCOSE COMMENT 1 Received Meds; GLUCOSE,POINT OF CARE 182 MG/DL (70-110)
[2016-10-12] MEDS ORDERED: OLANZapine 5 MG TABLET PO SCH (21:00)
[2016-10-13 06:56] LABS: GLUCOSE,POINT OF CARE 164 MG/DL (70-110)
[2016-10-13] MEDS: INSULIN ASPART 100 UNITS/ML SQ PRN ×4 (06:58→20:51)
[2016-10-13] MEDS: LEVOTHYROXINE SODIUM 50 MCG TABLET PO SCH (06:59)
[2016-10-13] MEDS: NICOTINE 14 MG/24 HOUR PATCH TD SCH (08:00)
[2016-10-13] MEDS: BACITRACIN 28.4 GM OINTMENT TP SCH ×2 (08:00→16:54)
[2016-10-13] MEDS: LORazepam 2 MG TABLET PO PRN ×2 (08:00→16:58)
[2016-10-13] MEDS: GABAPENTIN 300 MG CAPSULE PO SCH ×3 (08:00→16:54)
[2016-10-13] MEDS: FLUoxetine HCL 20 MG CAPSULE PO SCH (08:00)
[2016-10-13] MEDS: LevETIRAcetam 500 MG TABLET PO SCH ×2 (08:00→16:54)
[2016-10-13 11:32] LABS: GLUCOSE,POINT OF CARE 178 MG/DL (70-110)
[2016-10-13 17:06] LABS: GLUCOSE,POINT OF CARE 198 MG/DL (70-110)
[2016-10-13] MEDS: OLANZapine 10 MG TABLET PO SCH (20:09)
[2016-10-13] MEDS: ZOLPIDEM TARTRATE 10 MG TABLET PO PRN (20:51)
[2016-10-13 20:57] LABS: GLUCOSE,POINT OF CARE 228 MG/DL (70-110)
[2016-10-14] MEDS: LORazepam 2 MG TABLET PO PRN ×3 (03:35→16:23)
[2016-10-14 03:45] VITALS: BP 138/88
[2016-10-14] MEDS: LEVOTHYROXINE SODIUM 50 MCG TABLET PO SCH (06:30)
[2016-10-14 06:38] LABS: GLUCOSE,POINT OF CARE 172 MG/DL (70-110)
[2016-10-14] MEDS: INSULIN ASPART 100 UNITS/ML SQ PRN ×4 (06:46→20:42)
[2016-10-14] MEDS: GABAPENTIN 300 MG CAPSULE PO SCH ×3 (08:01→16:23)
[2016-10-14] MEDS: BACITRACIN 28.4 GM OINTMENT TP SCH ×2 (08:01→16:51)
[2016-10-14] MEDS: FLUoxetine HCL 20 MG CAPSULE PO SCH (08:01)
[2016-10-14] MEDS: LevETIRAcetam 500 MG TABLET PO SCH ×2 (08:01→16:23)
[2016-10-14] MEDS: NICOTINE 14 MG/24 HOUR PATCH TD SCH (08:01)
[2016-10-14 11:13] LABS: GLUCOSE,POINT OF CARE 176 MG/DL (70-110)
[2016-10-14 12:00] VITALS: BP 114/60
[2016-10-14 16:33] LABS: GLUCOSE,POINT OF CARE 222 MG/DL (70-110)
[2016-10-14] MEDS: OLANZapine 10 MG TABLET PO SCH (20:03)
[2016-10-14 20:12] LABS: GLUCOSE,POINT OF CARE 265 MG/DL (70-110)
[2016-10-14] MEDS: ZOLPIDEM TARTRATE 10 MG TABLET PO PRN (21:01)
[2016-10-15 00:15] VITALS: BP 139/92
[2016-10-15] MEDS: LORazepam 2 MG TABLET PO PRN ×3 (00:16→16:36)
[2016-10-15] MEDS: ACETAMINOPHEN 325 MG TABLET PO PRN ×4 (02:57→20:15)
[2016-10-15] MEDS: LEVOTHYROXINE SODIUM 50 MCG TABLET PO SCH (06:35)
[2016-10-15] MEDS: INSULIN ASPART 100 UNITS/ML SQ PRN ×4 (06:37→20:33)
[2016-10-15 06:47] LABS: GLUCOSE,POINT OF CARE 212 MG/DL (70-110)
[2016-10-15] MEDS: FLUoxetine HCL 20 MG CAPSULE PO SCH (08:45)
[2016-10-15] MEDS: GABAPENTIN 300 MG CAPSULE PO SCH ×3 (08:45→16:10)
[2016-10-15] MEDS: LevETIRAcetam 500 MG TABLET PO SCH ×2 (08:46→16:10)
[2016-10-15] MEDS: NICOTINE 14 MG/24 HOUR PATCH TD SCH ×2 (08:46→08:53)
[2016-10-15] MEDS: BACITRACIN 28.4 GM OINTMENT TP SCH ×2 (08:46→16:15)
[2016-10-15 10:52] LABS: GLUCOSE COMMENT 1 Received Meds; GLUCOSE,POINT OF CARE 220 MG/DL (70-110)
[2016-10-15] MEDS: IBUPROFEN 600 MG TABLET PO PRN (10:59)
[2016-10-15 16:08] VITALS: BP 135/83
[2016-10-15] MEDS: TOPIRAMATE 25 MG TABLET PO SCH (16:10)
[2016-10-15 16:17] LABS: GLUCOSE COMMENT 1 Received Meds; GLUCOSE,POINT OF CARE 358 MG/DL (70-110)
[2016-10-15] MEDS: OLANZapine 10 MG TABLET PO SCH (20:15)
[2016-10-15] MEDS: ZOLPIDEM TARTRATE 10 MG TABLET PO PRN (20:26)
[2016-10-15 20:28] LABS: GLUCOSE COMMENT 1 Received Meds; GLUCOSE,POINT OF CARE 332 MG/DL (70-110)
[2016-10-16 06:30] VITALS: BP 132/87
[2016-10-16] MEDS: LEVOTHYROXINE SODIUM 50 MCG TABLET PO SCH (06:48)
[2016-10-16] MEDS: INSULIN ASPART 100 UNITS/ML SQ PRN ×4 (06:49→21:21)
[2016-10-16 06:53] LABS: GLUCOSE,POINT OF CARE 220 MG/DL (70-110)
[2016-10-16] MEDS: LevETIRAcetam 500 MG TABLET PO SCH ×2 (08:21→16:31)
[2016-10-16] MEDS: GABAPENTIN 300 MG CAPSULE PO SCH ×3 (08:21→16:31)
[2016-10-16] MEDS: FLUoxetine HCL 20 MG CAPSULE PO SCH (08:22)
[2016-10-16] MEDS: BACITRACIN 28.4 GM OINTMENT TP SCH ×2 (08:23→16:39)
[2016-10-16] MEDS: TOPIRAMATE 25 MG TABLET PO SCH ×2 (08:23→16:30)
[2016-10-16] MEDS: NICOTINE 14 MG/24 HOUR PATCH TD SCH (08:32)
[2016-10-16] MEDS: LORazepam 2 MG TABLET PO PRN ×3 (08:46→21:09)
[2016-10-16] MEDS: IBUPROFEN 600 MG TABLET PO PRN ×2 (08:46→18:36)
[2016-10-16 12:12] LABS: GLUCOSE,POINT OF CARE 197 MG/DL (70-110)
[2016-10-16 16:05] VITALS: BP 130/69
[2016-10-16 16:57] LABS: GLUCOSE,POINT OF CARE 391 MG/DL (70-110)
[2016-10-16 18:35] VITALS: BP 130/80
[2016-10-16] MEDS: OLANZapine 10 MG TABLET PO SCH (20:21)
[2016-10-16] MEDS: ZOLPIDEM TARTRATE 10 MG TABLET PO PRN (20:46)
[2016-10-16 21:11] LABS: GLUCOSE,POINT OF CARE 315 MG/DL (70-110)
[2016-10-17 03:40] VITALS: BP 128/76
[2016-10-17] MEDS: IBUPROFEN 600 MG TABLET PO PRN ×2 (03:42→16:20)
[2016-10-17] MEDS: INSULIN ASPART 100 UNITS/ML SQ PRN ×4 (06:48→21:00)
[2016-10-17] MEDS: LEVOTHYROXINE SODIUM 50 MCG TABLET PO SCH (06:49)
[2016-10-17] MEDS: SUMAtriptan SUCCINATE 25 MG TABLET PO PRN ×2 (06:58→12:06)
[2016-10-17 07:08] LABS: GLUCOSE,POINT OF CARE 304 MG/DL (70-110)
[2016-10-17 08:17] VITALS: BP 133/81
[2016-10-17] MEDS: TOPIRAMATE 25 MG TABLET PO SCH ×2 (08:37→16:20)
[2016-10-17] MEDS: LevETIRAcetam 500 MG TABLET PO SCH ×2 (08:38→16:20)
[2016-10-17] MEDS: FLUoxetine HCL 20 MG CAPSULE PO SCH (08:38)
[2016-10-17] MEDS: GABAPENTIN 300 MG CAPSULE PO SCH ×3 (08:38→16:20)
[2016-10-17] MEDS: NICOTINE 14 MG/24 HOUR PATCH TD SCH (08:41)
[2016-10-17] MEDS: LORazepam 2 MG TABLET PO PRN ×3 (08:42→20:31)
[2016-10-17] MEDS: BACITRACIN 28.4 GM OINTMENT TP SCH ×2 (09:18→16:28)
[2016-10-17 11:57] LABS: GLUCOSE,POINT OF CARE 242 MG/DL (70-110)
[2016-10-17 12:06] VITALS: BP 143/90
[2016-10-17 16:15] VITALS: BP 117/73
[2016-10-17 16:37] LABS: GLUCOSE COMMENT 1 Received Meds; GLUCOSE,POINT OF CARE 277 MG/DL (70-110)
[2016-10-17 20:27] LABS: GLUCOSE COMMENT 1 Received Meds; GLUCOSE,POINT OF CARE 345 MG/DL (70-110)
[2016-10-17] MEDS: OLANZapine 10 MG TABLET PO SCH (20:31)
[2016-10-17] MEDS: ZOLPIDEM TARTRATE 10 MG TABLET PO PRN (20:31)
[2016-10-18] MEDS: LEVOTHYROXINE SODIUM 50 MCG TABLET PO SCH (06:42)
[2016-10-18] MEDS: INSULIN ASPART 100 UNITS/ML SQ PRN ×4 (06:53→21:03)
[2016-10-18 06:58] LABS: GLUCOSE,POINT OF CARE 247 MG/DL (70-110)
[2016-10-18 08:30] VITALS: BP 112/67
[2016-10-18] MEDS: NICOTINE 14 MG/24 HOUR PATCH TD SCH (09:00)
[2016-10-18] MEDS: GABAPENTIN 300 MG CAPSULE PO SCH ×3 (10:01→16:29)
[2016-10-18] MEDS: FLUoxetine HCL 20 MG CAPSULE PO SCH (10:01)
[2016-10-18] MEDS: LevETIRAcetam 500 MG TABLET PO SCH ×2 (10:01→16:29)
[2016-10-18] MEDS: TOPIRAMATE 25 MG TABLET PO SCH ×2 (10:01→16:29)
[2016-10-18] MEDS: BACITRACIN 28.4 GM OINTMENT TP SCH ×2 (10:03→16:33)
[2016-10-18] MEDS: BENZOCAINE 10% 7 GM GEL TP PRN (10:18)
[2016-10-18] MEDS: LORazepam 2 MG TABLET PO PRN ×2 (11:12→16:32)
[2016-10-18 11:22] LABS: GLUCOSE,POINT OF CARE 322 MG/DL (70-110)
[2016-10-18 16:27] LABS: GLUCOSE,POINT OF CARE 204 MG/DL (70-110)
[2016-10-18 17:37] VITALS: BP 118/68
[2016-10-18] MEDS: SUMAtriptan SUCCINATE 25 MG TABLET PO PRN (17:37)
[2016-10-18] MEDS: OLANZapine 10 MG TABLET PO SCH (20:02)
[2016-10-18 20:22] LABS: GLUCOSE COMMENT 1 Repeated; GLUCOSE COMMENT 2 Doctor Notified; GLUCOSE,POINT OF CARE 403 MG/DL (70-110)
[2016-10-18] MEDS: ZOLPIDEM TARTRATE 10 MG TABLET PO PRN (21:05)
[2016-10-18 22:28] LABS: GLUCOSE,POINT OF CARE 319 MG/DL (70-110)
[2016-10-19 05:08] VITALS: BP 128/80
[2016-10-19] MEDS: LORazepam 2 MG TABLET PO PRN ×3 (05:09→14:24)
[2016-10-19 06:42] LABS: GLUCOSE,POINT OF CARE 253 MG/DL (70-110)
[2016-10-19] MEDS: LEVOTHYROXINE SODIUM 50 MCG TABLET PO SCH (06:43)
[2016-10-19] MEDS: INSULIN ASPART 100 UNITS/ML SQ PRN ×2 (06:53→11:45)
[2016-10-19] MEDS: GABAPENTIN 300 MG CAPSULE PO SCH ×2 (08:30→12:05)
[2016-10-19] MEDS: TOPIRAMATE 25 MG TABLET PO SCH (08:32)
[2016-10-19] MEDS: FLUoxetine HCL 20 MG CAPSULE PO SCH (08:32)
[2016-10-19] MEDS: LevETIRAcetam 500 MG TABLET PO SCH (08:32)
[2016-10-19] MEDS: BACITRACIN 28.4 GM OINTMENT TP SCH (08:33)
[2016-10-19] MEDS: NICOTINE 14 MG/24 HOUR PATCH TD SCH (08:34)
[2016-10-19 09:04] VITALS: BP 122/73
[2016-10-19] MEDS: SUMAtriptan SUCCINATE 25 MG TABLET PO PRN (09:06)
[2016-10-19] MEDS: BENZOCAINE 10% 7 GM GEL TP PRN (10:39)
[2016-10-19 10:52] LABS: GLUCOSE COMMENT 1 Received Meds; GLUCOSE,POINT OF CARE 318 MG/DL (70-110)
[2016-10-19] MEDS: IBUPROFEN 600 MG TABLET PO PRN (14:24)
[2016-10-19] MEDS ORDERED: TOPI25 PO (15:50)
[2016-10-19] MEDS ORDERED: FLUO-191 PO (15:50)
[2016-10-19] MEDS ORDERED: METF500T4 PO (15:51)
[2016-10-19] MEDS ORDERED: INSNOV SQ (16:11)
[2016-10-19 16:21] VITALS: BP 113/82
[2016-10-19] MEDS ORDERED: MetFORMIN HCL 500 MG TABLET PO SCH (17:00)
[2016-10-20] MEDS ORDERED: LORA2TAB2 PO (01:03)
[2016-10-20] MEDS ORDERED: ZOLP5 PO (01:03)
== END 2016-10-19 16:45 | disposition home or self-care (01) | DRG 750 ==
LOC: B3A 18:21
PROVIDERS: ADMIT Psychiatry & Neurology Child & Adolescent Psychiatry; ATTEND Psychiatry & Neurology Psychiatry
DX: F25.1 Schizoaffective disorder, depressive type (principal); R56.9 Unspecified convulsions; F15.20 Other stimulant dependence, uncomplicated; E11.9 Type 2 diabetes mellitus without complications; Z68.41 Body mass index [BMI] 40.0-44.9, adult; F60.3 Borderline personality disorder; B85.0 Pediculosis due to Pediculus humanus capitis; E66.9 Obesity, unspecified; Z59.0 Homelessness; Z88.0 Allergy status to penicillin; Z88.8 Allergy status to other drugs, medicaments and biological substances; J45.909 Unspecified asthma, uncomplicated; Z72.0 Tobacco use; F12.90 Cannabis use, unspecified, uncomplicated; G47.00 Insomnia, unspecified; Z91.14 Patient's other noncompliance with medication regimen
CPT/HCPCS: 82962; 83036; 84439; 84443; 87081; 90471; Q0162

== ENCOUNTER 2016-10-20 00:47 | Emergency (ER) | payer MEDICAID, OTHER ==
[~2016-10-20] VITALS: Ht 157.5 cm; Wt 99.5 kg
[~2016-10-20 00:47] MED LIST changes: +INSNOV SQ; +METF500T4 PO; +TOPI100 PO; +TOPI25 PO
[2016-10-20 01:02] LABS: GLUCOSE,POINT OF CARE 435 MG/DL (70-110)
[2016-10-20] MEDS ORDERED: ZOLP5 PO (01:03)
[2016-10-20] MEDS ORDERED: LORA2TAB2 PO (01:03)
[2016-10-20 02:28] LABS: BASOPHILS % (AUTO) 0.3 % (0.0-2.0); EOSINOPHILS % (AUTO) 2.5 % (1.0-6.0); HEMATOCRIT 39.8 % (36-46); HEMOGLOBIN 13.5 g/dL (12.0-16.0); LYMPHOCYTES # (AUTO) 2.6 K/uL (1.0-4.8); LYMPHOCYTES % (AUTO) 31.1 % (22.0-44.0); MEAN CORPUSCULAR HEMOGLOBIN 28.3 pg (26.0-34.0); MEAN CORPUSCULAR VOLUME 83 fL (80-100); MONOCYTES # (AUTO) 0.8 K/uL (0.1-1.0); MONOCYTES % (AUTO) 9.3 % (2.0-9.0); NEUTROPHILS # (AUTO) 4.7 K/uL (1.8-7.7); NEUTROPHILS % (AUTO) 56.8 % (40.0-70.0); PLATELET COUNT (AUTO) 226 K/uL (150-450); RED BLOOD CELL COUNT(AUTO) 4.79 MIL/uL (4.00-5.20); RED CELL DISTRIBUTION WIDTH 13.6 % (11.5-14.5); WHITE BLOOD COUNT (AUTO) 8.3 K/uL (4.5-11.0)
[2016-10-20] MEDS ORDERED: SODIUM CHLORIDE 0.9% 1,000 ML IV ONE (02:30)
[2016-10-20 02:39] LABS: ANION GAP 10 mmol/L (8-16); CALCIUM, TOTAL 9.2 mg/dL (8.8-10.5); CARBON DIOXIDE 24 mmol/L (22-29); CHLORIDE 104 mmol/L (98-107); CREATININE 0.75 mg/dL (0.60-1.30); GLOMERULAR FILTR. RATE CALC > 60 mL/min (>60); SODIUM SERUM 138 mmol/L (136-145); UREA NITROGEN, BLOOD 17 mg/dL (7-18)
[2016-10-20 02:57] LABS: ALANINE AMINOTRANSFERASE 29 U/L (12-78); ALBUMIN 3.1 g/dL (3.4-5.0); ASPARTATE AMINOTRANSFERASE 13 U/L (15-37); BILIRUBIN,TOTAL 0.2 mg/dL (0.1-1.0); TOTAL PROTEIN, SERUM 6.9 g/dL (6.4-8.2)
[2016-10-20 03:17] LABS: GLUCOSE,POINT OF CARE 304 MG/DL (70-110)
[2016-10-20] MEDS ORDERED: INSULIN REGULAR, HUMAN 100 UNITS/ML IVP ONE (03:30)
[2016-10-20 04:13] LABS: GLUCOSE,POINT OF CARE 172 MG/DL (70-110)
[2016-10-20 04:45] VITALS: BP 127/77
== END 2016-10-20 04:50 | disposition home or self-care (01) ==
LOC: EMS 00:49
DX: F32.9 Major depressive disorder, single episode, unspecified (principal); E11.65 Type 2 diabetes mellitus with hyperglycemia; F31.9 Bipolar disorder, unspecified; F20.9 Schizophrenia, unspecified; F17.210 Nicotine dependence, cigarettes, uncomplicated; F12.90 Cannabis use, unspecified, uncomplicated; Z88.0 Allergy status to penicillin; Z88.8 Allergy status to other drugs, medicaments and biological substances; Z79.4 Long term (current) use of insulin; Z79.82 Long term (current) use of aspirin
CPT/HCPCS: 36415; 80053; 80307; 82948; 82962; 85025; 96361; 96374; 99284; G0480; J1815; J7030

== ENCOUNTER 2016-12-08 14:39 | Emergency (ER) | payer OTHER ==
[~2016-12-08] VITALS: Ht 157.5 cm; Wt 100.0 kg
[~2016-12-08 14:39] MED LIST changes: -BUSP10TA23 PO; -HYDR-4031 PO; +LORA2TAB2 PO; -METF500T4 PO; -TOPI100 PO; +ZOLP5 PO
[2016-12-08] MEDS ORDERED: VENL-67 PO (14:55)
[2016-12-08 17:02] LABS: BASOPHILS # (AUTO) 0.01 K/uL (0.00-0.20); BASOPHILS % (AUTO) 0.1 % (0.0-2.0); EOSINOPHILS # (AUTO) 0.16 K/uL (0.00-0.70); EOSINOPHILS % (AUTO) 1.36 % (1.0-6.0); HEMOGLOBIN 13.6 g/dL (12.0-16.0); LYMPHOCYTES # (AUTO) 3.7 K/uL (1.0-4.8); LYMPHOCYTES % (AUTO) 32.4 % (22.0-44.0); MEAN CORPUSCULAR HEMOGLOBIN 28.1 pg (26.0-34.0); MEAN CORPUSCULAR HGB CONC 34.1 G/dL (31.0-37.0); MEAN CORPUSCULAR VOLUME 82 fL (80-100); MONOCYTES # (AUTO) 0.8 K/uL (0.1-1.0); MONOCYTES % (AUTO) 6.7 % (2.0-9.0); NEUTROPHILS # (AUTO) 6.8 K/uL (1.8-7.7); NEUTROPHILS % (AUTO) 59.4 % (40.0-70.0); PLATELET COUNT (AUTO) 216 K/uL (150-450); RED BLOOD CELL COUNT(AUTO) 4.86 MIL/uL (4.00-5.20); RED CELL DISTRIBUTION WIDTH 13.5 % (11.5-14.5); WHITE BLOOD COUNT (AUTO) 11.5 K/uL (4.5-11.0)
[2016-12-08 17:09] LABS: ANION GAP 8 mmol/L (8-16); CARBON DIOXIDE 26 mmol/L (22-29); CHLORIDE 108 mmol/L (98-107); CREATININE 0.64 mg/dL (0.60-1.30); GLOMERULAR FILTR. RATE CALC > 60 mL/min (>60); POTASSIUM 3.9 mmol/L (3.5-5.1); SODIUM SERUM 142 mmol/L (136-145); UREA NITROGEN, BLOOD 19 mg/dL (7-18)
[2016-12-08 17:14] LABS: ALANINE AMINOTRANSFERASE 33 U/L (12-78); ALBUMIN 3.6 g/dL (3.4-5.0); ASPARTATE AMINOTRANSFERASE 19 U/L (15-37); BILIRUBIN,TOTAL 0.2 mg/dL (0.1-1.0); TOTAL PROTEIN, SERUM 7.5 g/dL (6.4-8.2)
[2016-12-08] MEDS ORDERED: PRAZ1 PO (18:24)
[2016-12-08] MEDS ORDERED: HYD50 PO (18:24)
[2016-12-08] MEDS ORDERED: NICO-650 TD (18:24)
[2016-12-08] MEDS ORDERED: BUSP10TA23 PO (18:24)
[2016-12-08] MEDS ORDERED: METF500T4 PO (18:24)
[2016-12-08] MEDS ORDERED: LORazepam 2 MG TABLET PO ONE (20:00)
[2016-12-08 20:23] VITALS: BP 138/79
== END 2016-12-08 20:30 | disposition home or self-care (01) ==
LOC: EMS 14:41
DX: F20.9 Schizophrenia, unspecified (principal); F31.9 Bipolar disorder, unspecified; F17.210 Nicotine dependence, cigarettes, uncomplicated; F12.10 Cannabis abuse, uncomplicated; E11.9 Type 2 diabetes mellitus without complications; Z88.8 Allergy status to other drugs, medicaments and biological substances; Z88.0 Allergy status to penicillin; Z91.048 Other nonmedicinal substance allergy status
CPT/HCPCS: 36415; 80053; 85025; 99284; G0480

== ENCOUNTER 2016-12-08 21:59 | Emergency (ER) | payer OTHER ==
[~2016-12-08] VITALS: Ht 157.5 cm; Wt 100.0 kg
[~2016-12-08 21:59] MED LIST changes: +BUSP10TA23 PO; +HYD50 PO; +METF500T4 PO; +NICO-650 TD; +PRAZ1 PO; +VENL-67 PO
[2016-12-08 22:58] LABS: BASOPHILS % (AUTO) 0.4 % (0.0-2.0); EOSINOPHILS % (AUTO) 1.7 % (1.0-6.0); HEMATOCRIT 39.7 % (36-46); HEMOGLOBIN 13.4 g/dL (12.0-16.0); LYMPHOCYTES # (AUTO) 3.5 K/uL (1.0-4.8); MEAN CORPUSCULAR HGB CONC 33.6 G/dL (31.0-37.0); MEAN CORPUSCULAR VOLUME 83 fL (80-100); MONOCYTES # (AUTO) 0.8 K/uL (0.1-1.0); MONOCYTES % (AUTO) 8.3 % (2.0-9.0); NEUTROPHILS # (AUTO) 4.6 K/uL (1.8-7.7); NEUTROPHILS % (AUTO) 50.6 % (40.0-70.0); PLATELET COUNT (AUTO) 218 K/uL (150-450); RED BLOOD CELL COUNT(AUTO) 4.77 MIL/uL (4.00-5.20); RED CELL DISTRIBUTION WIDTH 13.4 % (11.5-14.5); WHITE BLOOD COUNT (AUTO) 9.1 K/uL (4.5-11.0)
[2016-12-08 23:15] LABS: ANION GAP 5 mmol/L (8-16); CALCIUM, TOTAL 8.8 mg/dL (8.8-10.5); CARBON DIOXIDE 29 mmol/L (22-29); CHLORIDE 108 mmol/L (98-107); CREATININE 0.71 mg/dL (0.60-1.30); GLOMERULAR FILTR. RATE CALC > 60 mL/min (>60); POTASSIUM 3.7 mmol/L (3.5-5.1); SODIUM SERUM 142 mmol/L (136-145); UREA NITROGEN, BLOOD 19 mg/dL (7-18)
[2016-12-08 23:20] LABS: ALANINE AMINOTRANSFERASE 36 U/L (12-78); ALBUMIN 3.6 g/dL (3.4-5.0); ASPARTATE AMINOTRANSFERASE 21 U/L (15-37); BILIRUBIN,TOTAL 0.4 mg/dL (0.1-1.0); TOTAL PROTEIN, SERUM 7.3 g/dL (6.4-8.2)
[2016-12-08 23:27] LABS: GLUCOSE,POINT OF CARE 116 MG/DL (70-110)
[2016-12-09] MEDS ORDERED: LevETIRAcetam 500 MG TABLET PO ONE
[2016-12-09 00:16] VITALS: BP 121/60
== END 2016-12-09 00:33 | disposition home or self-care (01) ==
LOC: EMS 22:00
DX: G40.909 Epilepsy, unspecified, not intractable, without status epilepticus (principal); Z88.0 Allergy status to penicillin; Z79.4 Long term (current) use of insulin; Z88.8 Allergy status to other drugs, medicaments and biological substances
CPT/HCPCS: 82948; 82962; 83735; 99285

== ENCOUNTER 2019-01-16 04:34 | Inpatient (IN) | payer MEDICAID ==
[~2019-01-16] VITALS: Ht 157.5 cm; Wt 95.3 kg
[~2019-01-16 04:34] MED LIST changes: +LORA-1001 PO; -LORA2TAB2 PO; +METF-960 PO; -METF500T4 PO; -OLAN10TA3 PO
[2019-01-16 09:11] VITALS: BP 136/98
[2019-01-16] MEDS ORDERED: PNEUMOCOCCAL VACCINE POLYVALENT 0.5 ML VIAL [PPSV23] IM ONE (11:00)
[2019-01-16] MEDS ORDERED: INFLUENZA VIRUS VACCINE QVS 2019-20 (3YR+)/PF 60 MCG/0.5 ML SYRINGE IM ONE (11:00)
[2019-01-16 11:05] LABS: GLUCOMETER DEV NAME(LOC) BV3S.; GLUCOSE,POINT OF CARE 179 MG/DL (70-110)
[2019-01-16] MEDS ORDERED: GLUCAGON,HUMAN RECOMBINANT 1 MG VIAL IM PRN (11:15)
[2019-01-16] MEDS: INSULIN LISPRO 100 UNITS/ML SQ PRN ×3 (12:01→20:59)
[2019-01-16] MEDS: GABAPENTIN 400 MG CAPSULE PO SCH ×2 (12:22→16:31)
[2019-01-16 16:05] VITALS: BP 140/92
[2019-01-16 16:18] LABS: GLUCOMETER DEV NAME(LOC) BV3S.; GLUCOSE,POINT OF CARE 158 MG/DL (70-110)
[2019-01-16] MEDS: BusPIRone HCL 5 MG TABLET PO SCH (16:31)
[2019-01-16] MEDS: LevETIRAcetam 500 MG TABLET PO SCH (16:31)
[2019-01-16] MEDS: BACITRACIN 28.4 GM OINTMENT TP SCH (16:49)
[2019-01-16 20:13] LABS: GLUCOMETER DEV NAME(LOC) BV3S.; GLUCOSE,POINT OF CARE 193 MG/DL (70-110)
[2019-01-16] MEDS: ZOLPIDEM TARTRATE 10 MG TABLET PO PRN (20:45)
[2019-01-17 06:08] VITALS: BP 136/89
[2019-01-17] MEDS: GABAPENTIN 400 MG CAPSULE PO SCH ×3 (08:14→16:19)
[2019-01-17] MEDS: LevETIRAcetam 500 MG TABLET PO SCH ×2 (08:14→16:19)
[2019-01-17] MEDS: VENLAFAXINE HCL 75 MG ER CAPSULE PO SCH (08:15)
[2019-01-17] MEDS: BusPIRone HCL 5 MG TABLET PO SCH ×2 (08:15→16:19)
[2019-01-17 08:17] VITALS: BP 135/96
[2019-01-17] MEDS: NICOTINE 21 MG/24 HOUR PATCH TD SCH (08:17)
[2019-01-17 08:26] VITALS: BP 135/96
[2019-01-17] MEDS ORDERED: BACITRACIN 28.4 GM OINTMENT TP PRN (09:45)
[2019-01-17] MEDS ORDERED: ACETAMINOPHEN 325 MG TABLET PO PRN (09:45)
[2019-01-17] MEDS ORDERED: PETROLATUM,WHITE 28 GM JELLY TP PRN (09:45)
[2019-01-17] MEDS ORDERED: DOCUSATE SODIUM 100 MG CAPSULE PO PRN (09:45)
[2019-01-17] MEDS ORDERED: MAG HYDROX/AL HYDROX/SIMETH ES 30 ML SUSPENSION UDCUP PO PRN (09:45)
[2019-01-17] MEDS ORDERED: ALBUTEROL SULFATE HFA 90 MCG/PUFF 8 GM INHALER IH PRN (09:45)
[2019-01-17] MEDS ORDERED: CloNIDine HCL 0.1 MG TABLET PO PRN (09:45)
[2019-01-17] MEDS ORDERED: LOPERAMIDE HCL 2 MG CAPSULE PO PRN (09:45)
[2019-01-17] MEDS ORDERED: IBUPROFEN 600 MG TABLET PO PRN (09:45)
[2019-01-17] MEDS ORDERED: BENZOCAINE/MENTHOL LOZENGE MM PRN (09:45)
[2019-01-17] MEDS ORDERED: MAGNESIUM HYDROXIDE SUSPENSION 30 ML UDCUP PO PRN (09:45)
[2019-01-17] MEDS ORDERED: OMEPRAZOLE 20 MG CAPSULE PO PRN (09:45)
[2019-01-17] MEDS ORDERED: ONDANSETRON HCL 4 MG TABLET PO PRN (09:45)
[2019-01-17] MEDS: BACITRACIN 28.4 GM OINTMENT TP SCH ×2 (09:54→16:19)
[2019-01-17 11:15] LABS: GLUCOMETER DEV NAME(LOC) BV3S.; GLUCOSE,POINT OF CARE 172 MG/DL (70-110)
[2019-01-17] MEDS: INSULIN LISPRO 100 UNITS/ML SQ PRN ×3 (11:34→20:37)
[2019-01-17 16:01] VITALS: BP 139/97
[2019-01-17 16:47] LABS: GLUCOMETER DEV NAME(LOC) BV3S.; GLUCOSE,POINT OF CARE 174 MG/DL (70-110)
[2019-01-17 20:27] LABS: GLUCOMETER DEV NAME(LOC) BV3S.; GLUCOSE,POINT OF CARE 167 MG/DL (70-110)
[2019-01-17] MEDS: ZOLPIDEM TARTRATE 10 MG TABLET PO PRN (21:02)
[2019-01-18] MEDS: LORazepam 2 MG TABLET PO PRN ×2 (02:56→20:22)
[2019-01-18 06:19] VITALS: BP 137/83
[2019-01-18 06:24] LABS: GLUCOMETER DEV NAME(LOC) BV3S.; GLUCOSE,POINT OF CARE 137 MG/DL (70-110)
[2019-01-18 07:19] LABS: BASOPHILS % (AUTO) 0.6 % (0.0-2.0); EOSINOPHILS % (AUTO) 2.3 % (1.0-6.0); HEMATOCRIT 41.6 % (36-46); HEMOGLOBIN 14.1 g/dL (12.0-16.0); LYMPHOCYTES # (AUTO) 2.6 K/uL (1.0-4.8); LYMPHOCYTES % (AUTO) 30.1 % (22.0-44.0); MEAN CORPUSCULAR HEMOGLOBIN 28.4 pg (26.0-34.0); MEAN CORPUSCULAR VOLUME 84 fL (80-100); MONOCYTES # (AUTO) 0.9 K/uL (0.1-1.0); MONOCYTES % (AUTO) 10.1 % (2.0-9.0); NEUTROPHILS % (AUTO) 56.9 % (40.0-70.0); PLATELET COUNT (AUTO) 234 K/uL (150-450); RED BLOOD CELL COUNT(AUTO) 4.98 MIL/uL (4.00-5.20); RED CELL DISTRIBUTION WIDTH 13.7 % (11.5-14.5)
[2019-01-18 07:59] LABS: HEMOGLOBIN A1C 6.8 % (4.5-6.2)
[2019-01-18] MEDS: LevETIRAcetam 500 MG TABLET PO SCH ×2 (08:14→16:04)
[2019-01-18] MEDS: GABAPENTIN 400 MG CAPSULE PO SCH ×3 (08:14→16:04)
[2019-01-18] MEDS: BusPIRone HCL 5 MG TABLET PO SCH ×2 (08:14→16:04)
[2019-01-18] MEDS: VENLAFAXINE HCL 75 MG ER CAPSULE PO SCH (08:14)
[2019-01-18 08:20] VITALS: BP 158/94
[2019-01-18 08:28] LABS: ALANINE AMINOTRANSFERASE 30 U/L (12-78); ALKALINE PHOSPHATASE 87 U/L (46-116); ANION GAP 2 mmol/L (8-16); ASPARTATE AMINOTRANSFERASE 15 U/L (15-37); CALCIUM, TOTAL 9.3 mg/dL (8.8-10.5); CARBON DIOXIDE 33 mmol/L (22-29); CHLORIDE 100 mmol/L (98-107); CHOL/HDL RATIO 2.7 (3.9-5.7); CHOLESTEROL 141 mg/dL (131-200); CREATININE 0.58 mg/dL (0.60-1.30); FREE T4 (FREE THYROXINE) 0.87 ng/dL (0.76-1.46); GLOMERULAR FILTR. RATE CALC > 60 mL/min (>60); GLUCOSE,RANDOM 139 mg/dL (70-110); HCG,QUANTITATIVE < 1 mIU/mL (0-6); HDL CHOLESTEROL 52 mg/dL (40-60); POTASSIUM 4.9 mmol/L (3.5-5.1); SODIUM SERUM 135 mmol/L (136-145); THYROID STIMULATING HORMONE 2.29 uIU/mL (0.36-3.74); TOTAL PROTEIN, SERUM 6.8 g/dL (6.4-8.2)
[2019-01-18] MEDS: BACITRACIN 28.4 GM OINTMENT TP SCH ×2 (08:28→16:08)
[2019-01-18] MEDS: NICOTINE 21 MG/24 HOUR PATCH TD SCH (09:00)
[2019-01-18 09:17] LABS: ALBUMIN 3.1 g/dL (3.4-5.0); BILIRUBIN,TOTAL 0.2 mg/dL (0.1-1.0); LDL CHOL (CALC.) 75 mg/dL (0-130); TRIGLYCERIDES 68 mg/dL (15-150); UREA NITROGEN, BLOOD 17 mg/dL (7-18)
[2019-01-18 11:37] LABS: GLUCOMETER DEV NAME(LOC) BV3S.; GLUCOSE,POINT OF CARE 126 MG/DL (70-110)
[2019-01-18 16:00] VITALS: BP 152/99
[2019-01-18 16:27] LABS: GLUCOMETER DEV NAME(LOC) BV3S.; GLUCOSE,POINT OF CARE 97 MG/DL (70-110)
[2019-01-18] MEDS ORDERED: GABA-533 PO (17:40)
[2019-01-18 17:47] VITALS: BP 136/79
[2019-01-18 20:22] VITALS: BP 121/82
[2019-01-18 20:46] LABS: GLUCOMETER DEV NAME(LOC) BV3S.; GLUCOSE,POINT OF CARE 185 MG/DL (70-110)
[2019-01-18] MEDS: INSULIN LISPRO 100 UNITS/ML SQ PRN (20:55)
[2019-01-18] MEDS: ZOLPIDEM TARTRATE 10 MG TABLET PO PRN (21:04)
[2019-01-19 06:28] VITALS: BP 139/90
[2019-01-19] MEDS ORDERED: LEVOTHYROXINE SODIUM 50 MCG TABLET PO SCH (06:30)
[2019-01-19] MEDS ORDERED: MetFORMIN HCL 500 MG TABLET PO SCH (07:00)
[2019-01-19] MEDS: GABAPENTIN 400 MG CAPSULE PO SCH ×2 (08:25→13:07)
[2019-01-19] MEDS: BusPIRone HCL 5 MG TABLET PO SCH (08:25)
[2019-01-19] MEDS: VENLAFAXINE HCL 75 MG ER CAPSULE PO SCH (08:25)
[2019-01-19] MEDS: BACITRACIN 28.4 GM OINTMENT TP SCH (08:26)
[2019-01-19] MEDS: NICOTINE 21 MG/24 HOUR PATCH TD SCH (08:26)
[2019-01-19] MEDS: LevETIRAcetam 500 MG TABLET PO SCH (08:26)
[2019-01-19 11:11] LABS: GLUCOMETER DEV NAME(LOC) BV3S.; GLUCOSE,POINT OF CARE 129 MG/DL (70-110)
== END 2019-01-19 13:15 | disposition home or self-care (01) | DRG 750 ==
LOC: B3A 09:32
PROVIDERS: ADMIT Psychiatry & Neurology Child & Adolescent Psychiatry; ATTEND Psychiatry & Neurology Child & Adolescent Psychiatry
DX: F25.9 Schizoaffective disorder, unspecified (principal); E11.9 Type 2 diabetes mellitus without complications; R45.851 Suicidal ideations; G40.909 Epilepsy, unspecified, not intractable, without status epilepticus; E66.9 Obesity, unspecified; G47.00 Insomnia, unspecified; F12.90 Cannabis use, unspecified, uncomplicated; F17.200 Nicotine dependence, unspecified, uncomplicated; J45.909 Unspecified asthma, uncomplicated; F41.9 Anxiety disorder, unspecified; Z71.6 Tobacco abuse counseling; Z59.0 Homelessness; Z90.49 Acquired absence of other specified parts of digestive tract; Z68.38 Body mass index [BMI] 38.0-38.9, adult
CPT/HCPCS: 83036; 84439; 84443

== ENCOUNTER 2019-05-03 14:51 | Inpatient (IN) | payer MEDICAID ==
[~2019-05-03] VITALS: Ht 157.5 cm; Wt 92.8 kg
[~2019-05-03 14:51] MED LIST changes: -FLUO-191 PO; -GABA-531 PO; +GABA-533 PO; -HYD50 PO; -INSNOV SQ; -LORA-1001 PO; -NICO-650 TD; -PRAZ1 PO; -TOPI25 PO; -ZOLP5 PO
[2019-05-04 01:42] VITALS: BP 131/86
[2019-05-04] MEDS ORDERED: INFLUENZA VIRUS VACCINE QVS 2019-20 (3YR+)/PF 60 MCG/0.5 ML SYRINGE IM ONE (02:45)
[2019-05-04 06:34] LABS: GLUCOMETER DEV NAME(LOC) BV3N.; GLUCOSE,POINT OF CARE 179 MG/DL (70-110)
[2019-05-04 08:14] VITALS: BP 125/92
[2019-05-04] MEDS ORDERED: LOPERAMIDE HCL 2 MG CAPSULE PO PRN (09:45)
[2019-05-04] MEDS ORDERED: BusPIRone HCL 10 MG TABLET PO SCH (10:15)
[2019-05-04] MEDS ORDERED: BusPIRone HCL 5 MG TABLET PO SCH (10:20)
[2019-05-04] MEDS: BusPIRone HCL 5 MG TABLET PO SCH ×2 (10:42→16:54)
[2019-05-04] MEDS: VENLAFAXINE HCL 75 MG ER CAPSULE PO SCH (10:42)
[2019-05-04] MEDS ORDERED: QUEtiapine FUMARATE 100 MG TABLET PO PRN (10:45)
[2019-05-04] MEDS ORDERED: ONDANSETRON HCL 4 MG TABLET PO PRN (11:30)
[2019-05-04] MEDS ORDERED: NICOTINE 14 MG/24 HOUR PATCH TD PRN (11:30)
[2019-05-04] MEDS ORDERED: ALBUTEROL SULFATE HFA 90 MCG/PUFF 8 GM INHALER IH PRN (11:30)
[2019-05-04] MEDS ORDERED: MAGNESIUM HYDROXIDE SUSPENSION 30 ML UDCUP PO PRN (11:30)
[2019-05-04] MEDS ORDERED: CloNIDine HCL 0.1 MG TABLET PO PRN (11:30)
[2019-05-04] MEDS ORDERED: ACETAMINOPHEN 325 MG TABLET PO PRN (11:30)
[2019-05-04] MEDS ORDERED: DOCUSATE SODIUM 100 MG CAPSULE PO PRN (11:30)
[2019-05-04] MEDS ORDERED: GuaiFENesin/D-METHORPHAN [SUGAR-FREE] 200-20MG/10 ML SYRUP UDCUP PO PRN (11:30)
[2019-05-04] MEDS ORDERED: PETROLATUM,WHITE 28 GM JELLY TP PRN (11:30)
[2019-05-04] MEDS: LORazepam 1 MG TABLET PO PRN (12:23)
[2019-05-04] MEDS: GABAPENTIN 400 MG CAPSULE PO SCH ×2 (12:43→16:54)
[2019-05-04] MEDS ORDERED: BUSP5TAB20 PO (13:51)
[2019-05-04] MEDS: LOPERAMIDE HCL 2 MG CAPSULE PO PRN (14:30)
[2019-05-04 16:01] VITALS: BP 138/80
[2019-05-04] MEDS: MetFORMIN HCL 500 MG TABLET PO SCH (16:54)
[2019-05-04] MEDS: LevETIRAcetam 500 MG TABLET PO SCH (16:54)
[2019-05-04] MEDS: ZOLPIDEM TARTRATE 10 MG TABLET PO PRN (22:06)
[2019-05-05] MEDS: MAG HYDROX/AL HYDROX/SIMETH ES 30 ML SUSPENSION UDCUP PO PRN (00:16)
[2019-05-05] MEDS: IBUPROFEN 400 MG TABLET PO PRN (02:07)
[2019-05-05] MEDS: LOPERAMIDE HCL 2 MG CAPSULE PO PRN (03:42)
[2019-05-05 05:16] VITALS: BP_SYST 113; BP_SYST 127; BP_DIAS 86
[2019-05-05] MEDS: MetFORMIN HCL 500 MG TABLET PO SCH ×2 (06:17→16:41)
[2019-05-05] MEDS: LEVOTHYROXINE SODIUM 50 MCG TABLET PO SCH (06:17)
[2019-05-05 06:28] LABS: GLUCOMETER DEV NAME(LOC) BV3N.; GLUCOSE,POINT OF CARE 109 MG/DL (70-110)
[2019-05-05 08:06] VITALS: BP 134/87
[2019-05-05] MEDS: VENLAFAXINE HCL 75 MG ER CAPSULE PO SCH (08:12)
[2019-05-05] MEDS: GABAPENTIN 400 MG CAPSULE PO SCH ×3 (08:12→16:41)
[2019-05-05] MEDS: LevETIRAcetam 500 MG TABLET PO SCH ×2 (08:12→16:41)
[2019-05-05] MEDS: BusPIRone HCL 5 MG TABLET PO SCH ×2 (08:13→17:29)
[2019-05-05] MEDS: LORazepam 1 MG TABLET PO PRN (10:42)
[2019-05-05 16:48] VITALS: BP 126/71
[2019-05-05 17:29] LABS: GLUCOMETER DEV NAME(LOC) BV3N.; GLUCOSE,POINT OF CARE 156 MG/DL (70-110)
[2019-05-05] MEDS: ZOLPIDEM TARTRATE 10 MG TABLET PO PRN (22:48)
[2019-05-06] MEDS: IBUPROFEN 400 MG TABLET PO PRN (02:38)
[2019-05-06 02:40] VITALS: BP 130/78
[2019-05-06] MEDS: LEVOTHYROXINE SODIUM 50 MCG TABLET PO SCH (06:10)
[2019-05-06] MEDS: MetFORMIN HCL 500 MG TABLET PO SCH ×2 (06:11→17:29)
[2019-05-06 06:19] LABS: GLUCOMETER DEV NAME(LOC) BV3N.; GLUCOSE,POINT OF CARE 108 MG/DL (70-110)
[2019-05-06 08:17] VITALS: BP 164/76
[2019-05-06] MEDS: BusPIRone HCL 5 MG TABLET PO SCH ×2 (08:35→17:29)
[2019-05-06] MEDS: GABAPENTIN 400 MG CAPSULE PO SCH ×2 (08:35→13:06)
[2019-05-06] MEDS: LevETIRAcetam 500 MG TABLET PO SCH ×2 (08:35→17:29)
[2019-05-06] MEDS: VENLAFAXINE HCL 75 MG ER CAPSULE PO SCH (08:35)
[2019-05-06] MEDS: LOPERAMIDE HCL 2 MG CAPSULE PO PRN (08:41)
[2019-05-06 09:06] LABS: BASOPHILS % (AUTO) 0.4 % (0.0-2.0); EOSINOPHILS % (AUTO) 1.6 % (1.0-6.0); HEMATOCRIT 41.4 % (36-46); HEMOGLOBIN 13.6 g/dL (12.0-16.0); LYMPHOCYTES # (AUTO) 2.9 K/uL (1.0-4.8); LYMPHOCYTES % (AUTO) 27.9 % (22.0-44.0); MEAN CORPUSCULAR HEMOGLOBIN 27.1 pg (26.0-34.0); MEAN CORPUSCULAR HGB CONC 32.9 G/dL (31.0-37.0); MEAN CORPUSCULAR VOLUME 82 fL (80-100); MONOCYTES # (AUTO) 1.1 K/uL (0.1-1.0); MONOCYTES % (AUTO) 10.3 % (2.0-9.0); NEUTROPHILS # (AUTO) 6.1 K/uL (1.8-7.7); NEUTROPHILS % (AUTO) 59.8 % (40.0-70.0); PLATELET COUNT (AUTO) 244 K/uL (150-450); RED BLOOD CELL COUNT(AUTO) 5.03 MIL/uL (4.00-5.20); RED CELL DISTRIBUTION WIDTH 13.2 % (11.5-14.5)
[2019-05-06 09:50] LABS: ALANINE AMINOTRANSFERASE 48 U/L (12-78); ALBUMIN 2.9 g/dL (3.4-5.0); ALKALINE PHOSPHATASE 91 U/L (46-116); ANION GAP 8 mmol/L (8-16); ASPARTATE AMINOTRANSFERASE 29 U/L (15-37); BILIRUBIN,TOTAL 0.2 mg/dL (0.1-1.0); CALCIUM, TOTAL 9.1 mg/dL (8.8-10.5); CARBON DIOXIDE 27 mmol/L (22-29); CHLORIDE 102 mmol/L (98-107); CHOL/HDL RATIO 2.6 (3.9-5.7); CHOLESTEROL 107 mg/dL (131-200); FREE T4 (FREE THYROXINE) 1.08 ng/dL (0.76-1.46); GLOMERULAR FILTR. RATE CALC > 60 mL/min (>60); GLUCOSE,RANDOM 112 mg/dL (70-110); HCG,QUANTITATIVE < 1 mIU/mL (0-6); HDL CHOLESTEROL 41 mg/dL (40-60); LDL CHOL (CALC.) 53 mg/dL (0-130); POTASSIUM 4.4 mmol/L (3.5-5.1); SODIUM SERUM 137 mmol/L (136-145); TOTAL PROTEIN, SERUM 6.9 g/dL (6.4-8.2); TRIGLYCERIDES 65 mg/dL (15-150); UREA NITROGEN, BLOOD 18 mg/dL (7-18)
[2019-05-06 10:00] VITALS: BP 138/74
[2019-05-06 10:09] LABS: HEMOGLOBIN A1C 7.1 % (3.8-5.6)
[2019-05-06] MEDS: MAG HYDROX/AL HYDROX/SIMETH ES 30 ML SUSPENSION UDCUP PO PRN ×2 (13:34→20:27)
[2019-05-06 17:17] VITALS: BP 132/66
[2019-05-06] MEDS: GABAPENTIN 300 MG CAPSULE PO SCH (17:28)
[2019-05-06 17:56] LABS: GLUCOMETER DEV NAME(LOC) BV3N.; GLUCOSE,POINT OF CARE 175 MG/DL (70-110)
[2019-05-06 17:56] LABS: GLUCOMETER DEV NAME(LOC) BV3N.; GLUCOSE,POINT OF CARE 136 MG/DL (70-110)
[2019-05-06] MEDS: LORazepam 1 MG TABLET PO PRN (20:27)
[2019-05-06] MEDS: ZOLPIDEM TARTRATE 10 MG TABLET PO PRN (21:34)
[2019-05-07 01:18] VITALS: BP 123/62
[2019-05-07 06:17] LABS: GLUCOMETER DEV NAME(LOC) BV3N.; GLUCOSE,POINT OF CARE 162 MG/DL (70-110)
[2019-05-07] MEDS: MetFORMIN HCL 500 MG TABLET PO SCH (06:35)
[2019-05-07] MEDS: LEVOTHYROXINE SODIUM 50 MCG TABLET PO SCH (06:35)
[2019-05-07 08:04] VITALS: BP 124/70
[2019-05-07] MEDS: BusPIRone HCL 5 MG TABLET PO SCH (09:10)
[2019-05-07] MEDS: LevETIRAcetam 500 MG TABLET PO SCH (09:10)
[2019-05-07] MEDS: VENLAFAXINE HCL 75 MG ER CAPSULE PO SCH (09:10)
[2019-05-07] MEDS: GABAPENTIN 300 MG CAPSULE PO SCH ×2 (09:10→12:09)
[2019-05-07] MEDS ORDERED: GABA-531 PO ×2 (09:28→10:01)
[2019-05-07] MEDS ORDERED: VENL75CA55 PO (10:01)
[2019-05-07] MEDS ORDERED: BUSP5TAB20 PO (10:01)
[2019-05-07] MEDS: MAG HYDROX/AL HYDROX/SIMETH ES 30 ML SUSPENSION UDCUP PO PRN (13:13)
== END 2019-05-07 13:30 | disposition home or self-care (01) | DRG 751 ==
LOC: B3A 05-04 01:00
DX: F33.2 Major depressive disorder, recurrent severe without psychotic features (principal); F20.9 Schizophrenia, unspecified; I50.9 Heart failure, unspecified; E11.9 Type 2 diabetes mellitus without complications; E03.9 Hypothyroidism, unspecified; F10.10 Alcohol abuse, uncomplicated; G40.909 Epilepsy, unspecified, not intractable, without status epilepticus; J44.9 Chronic obstructive pulmonary disease, unspecified; Z91.5 Personal history of self-harm; Z88.0 Allergy status to penicillin; Z88.8 Allergy status to other drugs, medicaments and biological substances
CPT/HCPCS: 83036; 84439; Q0162